=== PATIENT | male | born 1980 | race Caucasian/White ===

== ENCOUNTER → 2023-07-22 08:43 | Outpatient (REF) | payer OTHER, SELFPAY | LOC: DHCBC/DCA 08:43 | PROVIDERS: ATTENDING PHYSICIAN Family Medicine | DX: R07.89 Other chest pain (principal); E78.1 Pure hyperglyceridemia | CPT/HCPCS: 78452; 93017; A9500; J2785 ==

== ENCOUNTER 2023-11-09 02:10 | Inpatient (IN) | payer OTHER, SELFPAY ==
[2023-11-08 19:09] VITALS: BP 184/95
[2023-11-08 19:23] LABS: % Basophils 0.5 % (0-2); % Eosinophils 1.4 % (0-6); % Immature Granulocytes 0.4 % (0-0.5); % Lymphocytes 11.8 % (20.5-51.1); % Monocytes 7.7 % (1.7-9.3); % Neutrophils 78.2 % (42.2-75.2); Absolute Basophils 0.1 10^3/uL (0-0.2); Absolute Eosinophils 0.2 10^3/uL (0-0.7); Absolute Immature Granulocytes 0.1 10^3/uL (0-0.05); Absolute Lymphocytes 1.8 10^3/uL (1.2-3.4); Absolute Monocytes 1.2 10^3/uL (0.1-0.6); Absolute Neutrophils 11.9 10^3/uL (1.4-6.5); Hematocrit 35.5 % (39.0-52.0); Hemoglobin 12.6 g/dL (13.0-18.0); Mean Corp Hgb Conc. 35.5 g/dL (33.0-37.0); Mean Corpuscular Hgb 27.4 pg (27.0-31.0); Mean Corpuscular Volume 77.2 fL (80.0-94.0); Mean Platelet Volume 10.5 fL (7.4-10.4); Nucleated Red Blood Cells % 0 % (-); Platelet Count 240 10^3/uL (130-400); Red Cell Dist. Width 12.5 % (11.5-14.5); White Blood Cell Count 15.3 10^3/uL (4.8-10.8)
[2023-11-08 19:44] LABS: Blood Urea Nitrogen 21 mg/dl (9-20); Calcium 9.4 mg/dl (8.4-10.2); Carbon Dioxide 26 mmol/L (22-30); Chloride 100 mmol/L (98-107); Glucose 276 mg/dl (70-99); Potassium 4.2 mmol/L (3.5-5.1); Sodium 135 mmol/L (135-145); eGFR > 60.00
[2023-11-08 20:17] VITALS: BMI 44.7
[2023-11-08 20:20] VITALS: BP 131/66
[2023-11-08 21:57] LABS: Glucose - Point of Care 275 mg/dl (70-99)
[2023-11-08] MEDS: NSS 1000 IV (22:13)
[2023-11-08] MEDS: NOVOLIN R 10 UNITS SC (22:15)
[2023-11-08 22:24] VITALS: BP 138/75
[2023-11-08] MEDS: ANCEF 10 IV (22:30)
--- NOTE | 2023-11-08 23:29 | ED.GENMED ---
History of Present Illness
General
Chief Complaint: Musculo-Skeletal Complaint
Source: patient
Exam Limitations: none
Time Seen by Provider: 11/08/23 20:59
Nursing documentation reviewed up to this point in time: agreed with
History of Present Illness
History of Present Illness:
43-year-old male past medical history of diabetes substance abuse presenting to the emergency department today with concerns of initial swelling discomfort to the right great toe. This is moving proximally into his right hartmann also having some
discomfort rating to his right groin. Denies significant systemic symptoms. Denies vomiting chest pain shortness of breath
Past History
Past History
ED Past Medical History: Asthma, HTN, NIDDM and Other (Cellulitis right leg. Migraines, PNA)
ED Past Surgical History: Orthopedic (Right shoulder surgery, Right elbow surgery)
Social History
Tobacco: Former smoker
Alcohol: Other
Drug: Former user
Personal: Single
Living: with family
Employment: Employed
Family History
Family History: Other (Noncontributory)
Review of Systems
Review of Systems
Allergies reviewed?: Yes
All Other Systems: ROS reviewed and negative except as documented in HPI and ROS
Phy Exam
Physical Exam
Physical Exam:
GENERAL: Alert , in no apparent distress
EYE: pupils equal and reactive
NECK: Supple, no significant adenopathy.
ENT: o/p clr, mmm.
CARDIAC: Regular rate and rhythm .
LUNGS: Clear breath sounds bilaterally, no acute respiratory distress, no wheezes/rales/rhonchi
ABDOMEN: Soft, without focal tenderness, no r/g, no cvat
NEUROLOGICAL: Alert and oriented, no focal neuro deficits
SKIN: Breakdown of the skin of the right great toe with a roughly 1 cm shallow ulcer tenderness to the area. Redness and warmth moving proximally into the right hartmann to the proximal right hartmann. Does not cross the knee. Warm and dry, skin intact.
MUSCULOSKELETAL: edema right leg, well perfused.
PSYCH: Normal and appropriate interaction.
Course
Orders/Labs/Results
Orders:
Orders
11/08/23 19:14
Basic Metabolic Panel Urgent
11/08/23 19:16
Complete Blood Count/With Diff Urgent
11/08/23 21:54
0.9% Sodium Chloride 1000 ml [Nss] 1,000 ml IV BOLUS
11/08/23 22:01
Insulin Human Regular [Novolin R] 10 units SC NOW STA
11/08/23 22:06
Blood Culture Urgent
FREIDA Source: Blood/Venous
Specimen Description:
11/08/23 22:23
CeFAZolin 2 GRAM [Ancef] 2 grams in 10 ml IV NOW
CR Foot - Right Min 3 Views Urgent
Comment:
Reason For Exam: great toe ulcer infection
Abnormal Lab Results
11/08/23 11/08/23 11/08/23
19:14 19:16 21:55
WBC 15.3 H 10^3/uL
(4.8-10.8)
RBC 4.60 L 10^6/uL
(4.70-6.10)
Hgb 12.6 L g/dL
(13.0-18.0)
Hct 35.5 L %
(39.0-52.0)
MCV 77.2 L fL
(80.0-94.0)
MPV 10.5 H fL
(7.4-10.4)
Abs Immat Gran (auto) 0.1 H 10^3/uL
(0-0.05)
Absolute Neuts (auto) 11.9 H 10^3/uL
(1.4-6.5)
Absolute Monos (auto) 1.2 H 10^3/uL
(0.1-0.6)
Neutrophils % 78.2 H %
(42.2-75.2)
Lymphocytes % 11.8 L %
(20.5-51.1)
BUN 21 H mg/dl
(9-20)
Glucose 276 H mg/dl
(70-99)
POC Glucose 275 H mg/dl
(70-99)
11/08/23 19:16
11/08/23 19:14
Vital Signs
Initial and Last Documented VS:
Initial Vital Signs
Temp Pulse Resp BP Pulse Ox
99.9 F 104 16 184/95 97
11/08/23 19:09 11/08/23 19:09 11/08/23 19:09 11/08/23 19:09 11/08/23 19:09
Last Documented Vital Signs
Temp Pulse Resp BP Pulse Ox
99.2 F 88 20 138/75 97
11/08/23 22:19 11/08/23 22:24 11/08/23 22:24 11/08/23 22:24 11/08/23 22:24
MDM/Problems Addressed
MDM/Problems Addressed:
43-year-old male presenting to the emergency department with what appears to be worsening infection of the right lower extremity initially starting from a cut or potential injury to the right great toe. Swelling and discomfort moving to the
proximal right hartmann patient does have a white count and temperature of 99.9. Hedoes have a history of diabetes currently sugar level in the 200s. Concerning large area of cellulitis as well as comorbidities admit for IV antibiotics.
*Critical Care Note
Total Time (30-74mins, 75-104mins- exclusive of procedures): Not Applicable
ED Attending Note
-
Portions of this chart may have been created with voice recognition software.� Occasional wrong word or��sound alike� substitutions may have occurred due to the inherent limitations of voice recognition software.
Discharge Plan
Departure
Patient Disposition: Admit
Date of Disposition: 11/08/23
Time of Disposition: 23:32
Admit to: Med/Surg
Admit to doctor: Prabhu
Presentation/result/management discussed w/ accepting MD/DO: Hospitalist
Patient with high blood pressure during this ER visit?: No
Condition: Good
Covid-19: Not Applicable
Discharge Problem:
Cellulitis
Prescriptions:
No Action
lisinopril 5 MG tablet
10 mg PO HS
metformin 1,000 MG tablet
1,000 mg PO BID
atorvastatin 40 mg Tablet
40 mg PO HS
insulin glargine [Lantus U-100 Insulin] 100 unit/mL Solution
90 unit SC HS
insulin aspart U-100 [Novolog FlexPen U-100 Insulin] 100 unit/mL (3 mL) Insulin Pen
SC TID
Patient Comments:
SLIDING SCALE
Rx Instructions:
sliding scale
fenofibrate 150 mg Capsule
145 mg PO DAILY
Mounjaro 2.5 mg/0.5 mL Pen Injector
SC WEEKLY
Patient Comments:
takes once per week, unsure exact dose
ibuprofen 800 mg Tablet
800 mg PO Q8H PRN (Reason: pain)
albuterol 90 mcg/actuation Aerosol
90 mcg INHALATION Q4H PRN (Reason: shortness of breath/wheezing)
Referrals:
Miquel Perea MD [Family Provider] -
Interventions
Interventions:
*Risk Screen - Suicide Last Done: 11/08/23 19:09
*General Assessment Last Done: 11/08/23 19:09
*Neglect/Abuse Screening Last Done: 11/08/23 19:09
ED-Musculoskeletal Assessment Last Done: 11/08/23 20:22
Discharge Date and Time
Print Language: SOUTH AFR[place]
[2023-11-09 00:18] LABS: Glucose - Point of Care 229 mg/dl (70-99)
[2023-11-09 00:24] VITALS: BP 139/78
--- NOTE | 2023-11-09 01:43 | HPS.HSE ---
Family Physician
-
Family Physician: Miquel Perea
Chief Complaint
-
R Foot Swelling
History of Present Illness
Patient is a 43y M with PMH significant for morbid obesity and DM-II who presents to ED complaining of R foot swelling x several days. Patient states that he initially noted blood from somewhere on the foot on Saturday evening. He was unable
to identify any specific wound at that time. He has peripheral neuropathy and poor sensation in his feet and has not been aware of any injury or trauma. He has had swelling in the R foot that has been gradually progressive x several days. He
reports a sense of tightness in the RLE that extends from the foot all the way to the groin. He denies any systemic complaints including fevers / chills, N/V, etc.
Medical History
Past Medical History
Past Medical History: Reports Other
Additional Past Medical History:
DM-II
Morbid Obesity
Past Surgical History: Reports Other
Additional Past Surgical History:
Shoulder Surgery
Elbow Surgery
Social History
Tobacco: Former Smoker (Quit smoking 5 months ago. Approx 20 pack years total use.)
Alcohol: None
Drug: None
Family History
Family History: Diabetes
Allergies / Home Medications
Allergies reflects when Allergies were last updated in [facility].
Home Medications with original date entered in [facility]
Allergy/Medication List:
Allergies
Allergy/AdvReac Type Severity Reaction Status Date / Time
theophylline Allergy Unknown Hives Verified 11/08/23 20:17
Home Medications
lisinopril 5 mg tablet 10 mg PO HS 02/21/14
metformin 1,000 mg tablet 1,000 mg PO BID 12/25/16
albuterol 90 mcg/actuation aerosol inhaler 90 mcg inhalation Q4H PRN shortness of breath/wheezing 11/08/23
atorvastatin 40 mg tablet 40 mg PO HS 11/08/23
fenofibrate 150 mg capsule 145 mg PO DAILY 11/08/23
ibuprofen 800 mg tablet 800 mg PO Q8H PRN pain 11/08/23
insulin aspart U-100 100 unit/mL (3 mL) subcutaneous pen (Novolog FlexPen U-100 Insulin aspart) unit SC TID 11/08/23
insulin glargine 100 unit/mL subcutaneous solution (Lantus U-100 Insulin) 90 unit SC HS 11/08/23
tirzepatide 2.5 mg/0.5 mL subcutaneous pen injector (Mounjaro) mg SC WEEKLY 11/08/23
Review of Systems
-
History Source: Patient
A 12 point ROS was completed and negative except as noted: Yes
Constitutional: Denies Fever or Chills
Respiratory: Denies Cough or Trouble Breathing
Cardiac: Denies Chest Pain or Palpitations
Abdomen/GI: Denies Abdominal Pain, Nausea, Vomiting or Diarrhea
: Denies Dysuria or Frequency
Musculoskeletal: Reports Joint Swelling and Edema; Denies Joint Pain
Skin: Reports Other (Redness R foot.)
Neurological: Denies Dizzy or Headache
Psych: Denies Depression or Anxiety
Physical Exam
Vital Signs
Vital Signs
Temp Pulse Resp BP Pulse Ox
99.2 F 85 16 139/78 100
11/08/23 22:19 11/09/23 00:24 11/09/23 00:24 11/09/23 00:24 11/09/23 00:24
Physical Exam
General: Other (Morbidly obese 43y M in no acute distress.)
HEENT: Moist mucous membranes, PERRLA and Other (Thick neck.)
Respiratory: Clear; No Wheezes, Rales or Rhonchi
Cardiac: S1/S2 and Regular Rhythm; No Murmur
GI: Soft, Non Tender, Non Distended and Normal Bowel Sounds
Musculoskeletal: No Clubbing, No Cyanosis and Other (Edema RLE mostly below the ankle. )
Skin: Other (Erythema / increased warmth of the R foot. Laceration / wound base of the 1st toe with small amount oozing blood.)
Neuro: AO x 3
Laboratory Results
-
11/08/23 19:16
11/08/23 19:14
Impression/Plan
-
A/P: Patient is a 43y M with PMH significant for DM-II and obesity who presents to ED complaining of R foot swelling x several days.
RLE Cellulitis
R Great Toe Wound / Laceration
- Admit for further evaluation and treatment.
- Continue IV abx with Zosyn for now given DM-II
- Podiatry evaluation re: great toe wound.
- Tetanus booster updated in the ED.
- Follow for clinical improvement.
DM-II with Peripheral Neuropathy
- Stable. Continue basal insulin regimen.
- Follow glucose and cover with SSI as needed.
- Update A1C.
Morbid Obesity
- affects all aspects of care.
- Encourage healthy diet and increased exercise with goal of weight loss.
DVT Prophylaxis: High dose Lovenox
Code Status: Full
[2023-11-09] MEDS: ADACEL 0.5 ML IM (01:44)
[2023-11-09] MEDS: NSS 1000 IV ×3 (03:41→22:07)
[2023-11-09] MEDS: ZOSYN 50 IV ×4 (03:43→21:03)
[2023-11-09 03:45] VITALS: BP 141/75
[2023-11-09] MEDS: TYLENOL 650 MG PO ×3 (05:35→21:04)
[2023-11-09 05:56] LABS: Hematocrit 35.4 % (39.0-52.0); Hemoglobin 12.3 g/dL (13.0-18.0); Mean Corp Hgb Conc. 34.7 g/dL (33.0-37.0); Mean Corpuscular Hgb 27.6 pg (27.0-31.0); Mean Corpuscular Volume 79.6 fL (80.0-94.0); Mean Platelet Volume 10.7 fL (7.4-10.4); Platelet Count 227 10^3/uL (130-400); Red Blood Cell Count 4.45 10^6/uL (4.70-6.10); Red Cell Dist. Width 12.5 % (11.5-14.5); White Blood Cell Count 14.3 10^3/uL (4.8-10.8)
[2023-11-09 06:09] LABS: Blood Urea Nitrogen 16 mg/dl (9-20); Calcium 7.6 mg/dl (8.4-10.2); Carbon Dioxide 23 mmol/L (22-30); Chloride 108 mmol/L (98-107); Estimated Creatinine Clearance > 125 ml/min; Glucose 171 mg/dl (70-99); Potassium 3.5 mmol/L (3.5-5.1); Sodium 138 mmol/L (135-145); eGFR > 60.00
[2023-11-09 06:25] VITALS: BP 149/80
[2023-11-09 08:26] LABS: Erythrocyte Sed Rate 25 mm/hour (0-20)
[2023-11-09 09:18] VITALS: BMI 44.2
[2023-11-09 09:19] VITALS: BP 153/91
[2023-11-09 09:33] LABS: Glucose - Point of Care 255 mg/dl (70-99)
[2023-11-09] MEDS: LOVENOX 40 MG SC ×2 (09:34→21:03)
[2023-11-09] MEDS: NOVOLOG FLEXPEN-MODERATE RESISTANCE 5 UNITS SC ×2 (09:52→12:00)
[2023-11-09 11:39] LABS: Glucose - Point of Care 283 mg/dl (70-99)
--- NOTE | 2023-11-09 12:07 | W.CS.POD ---
Consult Summary - Podiatry
-
Patient is a 43y M with PMH significant for morbid obesity and DM-II with recent HbA1c at 12 admitted with Rt foot swelling and Rt big toe wound, he states that he did not feel any thing in the foot till he noticed swelling and redness and pain
going to his groin. HE had fever,chills 2days ago, He has peripheral neuropathy and poor sensation in his feet and has not been aware of any injury or trauma. His swelling progressively got worse so he presented to the hosp, He Is on IV abx
improving WBC count, denies any chest pain, no SOB complaints including fevers / chills, N/V, etc.
Reviewed PMH, meds and allergies.
Rt foot intact Pedal pulses
Loss of protective sensation to b/l feet
Rt L/E edematous, mild erythema to RT foot , RT hallux medial aspect with pustule noted. there is dry superficial ulcer plantar aspect of the hallux. no exposed bone, does not probe to deep tissues,.
Xrays negative for any bone pathology
No osteomyelitic changes noted .
WBC count 14
A/p; Rt foot cellultis
Rt hallux abscess
DM - type 2 with poorly controlled HB a1c
Diabetic neuropathy
Obesity.
Plan : Cont IV abx
At beside, drained Rt hallux pustule, obtained aerobic and anaerobic cultures, sent for micro
Dry gauze dressings with adaptic applied
elevate t lower leg when at rest
No surgical intervention by podiatry
--- NOTE | 2023-11-09 13:57 | W.PN.UPDATE ---
Update Note
Progress Note Update
Seen by Dr. Berrios this morning. Admitted for right lower extremity cellulitis. Seen by manufacturing helper -there input and recommendation noted. Continue with antibiotics and follow culture data.
[2023-11-09 15:20] VITALS: BP 135/84
[2023-11-09 16:49] LABS: Glucose - Point of Care 240 mg/dl (70-99)
[2023-11-09] MEDS: NOVOLOG FLEXPEN-MODERATE RESISTANCE 3 UNITS SC (17:15)
--- NOTE | 2023-11-09 18:08 | PTCARENOTE ---
Received patient from ED AAOx3. Pt oriented to room. IVF infusing without difficulty. Pt tolerated diet well. Complained of pain in right foot. Medicated with Tylenol with moderated relief. Made patient comfortable. Cont to assess patient status.
[2023-11-09] MEDS: LIPITOR 40 MG PO (21:02)
[2023-11-09] MEDS: LANTUS 0.9 UNITS SC (21:03)
[2023-11-09] MEDS: ZESTRIL 10 MG PO (21:03)
[2023-11-09 21:06] LABS: Glucose - Point of Care 279 mg/dl (70-99)
[2023-11-09] MEDS: MOTRIN 800 MG PO (22:07)
[2023-11-09 23:46] VITALS: BP 138/79
[2023-11-10] MEDS: ZOSYN 50 IV ×4 (03:17→22:44)
[2023-11-10 07:15] LABS: Glucose - Point of Care 282 mg/dl (70-99)
[2023-11-10 07:25] VITALS: BP 140/86
[2023-11-10] MEDS: LOVENOX 40 MG SC ×2 (08:31→21:09)
[2023-11-10 08:32] VITALS: BP 140/86
[2023-11-10] MEDS: NOVOLOG FLEXPEN-HIGH RESISTANCE 7 UNITS SC ×2 (08:32→12:44)
[2023-11-10 11:41] LABS: Glucose - Point of Care 297 mg/dl (70-99)
[2023-11-10] MEDS: NSS IV (11:43)
[2023-11-10] MEDS: MOTRIN 400 MG PO ×2 (11:49→21:08)
[2023-11-10 12:21] LABS: Glycohemoglobin (HgbA1c) 9.3 % (4.0-5.6)
--- NOTE | 2023-11-10 14:03 | W.PN.HOSP.TC ---
Today's Communication/Plan
-
cw Zosyn
Follow CX from I*D
Add nutritional insulin
Assessment / Plan
Assessment / Plan
A/P: Patient is a 43y M with PMH significant for DM-II and obesity who presents to ED complaining of R foot swelling x several days.
RLE Cellulitis
R Great Toe Wound / Laceration
- s/p local I*D of right big toe 11/08.Wound cx sent , pending.
- Continue IV abx with Zosyn for now given DM-II
- Podiatry following
- Tetanus booster updated in the ED.
- Follow for clinical improvement.
DM-II with Peripheral Neuropathy
- Stable. Continue basal insulin regimen.
- Follow glucose and cover with SSI as needed.
- Update A1C pending
- Patient was using Lantus and that sliding scale insulin with her meals but no nutritional insulin. Will start on nutritional insulin and increase the sliding scale to high-dose.
Morbid Obesity
- affects all aspects of care.
- Encourage healthy diet and increased exercise with goal of weight loss.
DVT Prophylaxis: High dose Lovenox
Code Status: Full
Anticipated Discharge: 24 - 48 hours
Subjective/Interval History
-
Date of Service: November 10, 2023
Right leg feels improved-less swelling, less redness. No fever or chills.
Objective Data
-
Vital Signs:
Vital Signs
Temp Pulse Resp BP Pulse Ox
97.6 F 73 18 140/86 98
11/10/23 07:25 11/10/23 07:25 11/10/23 07:25 11/10/23 07:25 11/10/23 08:30
I&O
11/09/23 11/10/23 11/11/23
06:59 06:59 06:59
Intake Total 580 / 580
Balance 580 / 580
Review of Systems
-
Respiratory: Denies Trouble Breathing
Cardiac: Denies Chest Pain
Abdomen/GI: Denies Nausea, Vomiting or Diarrhea
Neuro: Denies Dizzy
Physical Exam
-
General: No Apparent Distress
Respiratory: Non Labored Respirations; Negative Accessory Resp Muscle Use
Cardiac: Regular Rhythm and S1/S2
GI: Soft
Skin: Other (rt big toe in dressing ; edema of foot and lower leg noted. black oxide coating equipment tender to touch on palpation of whole foot and medial leg ( where the redness is better) ; tender inguinal LN on rt.)
Neuro: AO x 3
Psych: Calm
Data Reviewed
-
Labs: Labs Reviewed by me
[2023-11-10 15:20] VITALS: BP 140/81
[2023-11-10 16:31] LABS: Glucose - Point of Care 215 mg/dl (70-99)
[2023-11-10] MEDS: NOVOLOG FLEXPEN 5 UNITS SC (16:46)
[2023-11-10] MEDS: NOVOLOG FLEXPEN-HIGH RESISTANCE 4 UNITS SC (16:47)
[2023-11-10] MEDS: LIPITOR 40 MG PO (21:10)
[2023-11-10 21:12] LABS: Glucose - Point of Care 258 mg/dl (70-99)
[2023-11-10] MEDS: LANTUS 0.9 UNITS SC (22:45)
[2023-11-10] MEDS: ZESTRIL 10 MG PO (22:46)
[2023-11-10 23:30] VITALS: BP 150/85
[2023-11-11 01:30] VITALS: PULSE 2; PULSE 76
[2023-11-11] MEDS: ZOSYN 50 IV ×2 (04:45→09:59)
[2023-11-11 04:49] LABS: Hematocrit 33.2 % (39.0-52.0); Hemoglobin 11.7 g/dL (13.0-18.0); Mean Corp Hgb Conc. 35.2 g/dL (33.0-37.0); Mean Corpuscular Hgb 27.9 pg (27.0-31.0); Mean Platelet Volume 10.6 fL (7.4-10.4); Platelet Count 208 10^3/uL (130-400); Red Cell Dist. Width 12.2 % (11.5-14.5); White Blood Cell Count 7.4 10^3/uL (4.8-10.8)
[2023-11-11 07:19] VITALS: BP 148/92
[2023-11-11 08:01] LABS: Glucose - Point of Care 226 mg/dl (70-99)
[2023-11-11] MEDS: LOVENOX 40 MG SC (08:13)
[2023-11-11] MEDS: NOVOLOG FLEXPEN 5 UNITS SC ×2 (08:15→12:35)
[2023-11-11] MEDS: NOVOLOG FLEXPEN-HIGH RESISTANCE 4 UNITS SC (08:16)
[2023-11-11] MEDS: MOTRIN 400 MG PO (08:18)
--- NOTE | 2023-11-11 09:06 | W.PN.HOSP.TC ---
Addendum entered and electronically signed by Jarred Bustillos MD 11/12/23 09:01:
Localized Infection Only, Without Systemic Illness
- R foot cellulitis
Original Note:
Today's Communication/Plan
-
Discharge today
Assessment / Plan
Assessment / Plan
A/P: Patient is a 43y M with PMH significant for DM-II and obesity who presents to ED complaining of R foot swelling x several days.
RLE Cellulitis
R Great Toe Wound / Laceration
- s/p local I*D of right big toe 11/08.wound cultures growing MSSA, sensitive to Augmentin
- Tetanus booster updated in the ED.
- Currently on IV Zosyn, medically stable and cleared by podiatry for discharge on Augmentin for 7 more days
- Continue topical mupirocin, daily feet checks
- Needs to wear her right surgical shoe, follow-up with podiatry in the office, and his PCP in 1 week
DM-II with Peripheral Neuropathy
- A1C 9.3
- Continue home Lantus 90 units at bedtime, Mounjaro. Add NovoLog 10 units AC 3 times daily
Morbid Obesity
- affects all aspects of care.
- Encourage healthy diet and increased exercise with goal of weight loss.
DVT Prophylaxis: High dose Lovenox
Code Status: Full
Physical Exam
General: Morbidly obese, no acute distress
HEENT: Normocephalic, Atraumatic, EOMI, MMM
Respiratory: Clear to Auscultation bilaterally
Cardiac: Normal S1/S2, Regular Rate and Rhythm
GI: Soft, Nontender, Nondistended, Normal Bowel Sounds
Extremities: No Clubbing, Cyanosis, or Edema
Right great toe ulcer dressed
Neuro: Nonfocal/Grossly Intact
Psych: Calm, Cooperative
Anticipated Discharge: Today
Subjective/Interval History
-
Date of Service: November 11, 2023
Patient reports feeling well. He does have right toe pain, 6 out of 10 in intensity. No fever, no vomiting.
Objective Data
-
Labs:
Laboratory Results
11/11/23
04:27
WBC 7.4
Hgb 11.7 L
Hct 33.2 L
Plt Count 208
Vital Signs:
Vital Signs
Temp Pulse Resp BP Pulse Ox
97.6 F 75 20 148/92 97
11/11/23 07:19 11/11/23 07:19 11/11/23 07:19 11/11/23 07:19 11/11/23 07:19
I&O
11/10/23 11/11/23 11/12/23
06:59 06:59 06:59
Intake Total 580 / 580 1080 / 1080
Balance 580 / 580 1080 / 1080
[2023-11-11] MEDS: BACTROBAN 2% OINTMENT 1 APPLIC TOPICAL (09:45)
--- NOTE | 2023-11-11 09:54 | WOUNDNOTE ---
R GREAT TOE PLANTAR
--- NOTE | 2023-11-11 09:55 | WOUNDNOTE ---
R MEDIAL GREAT TOE
--- NOTE | 2023-11-11 09:55 | WOUNDNOTE ---
R GREAT TOE PLANTAR
--- NOTE | 2023-11-11 09:56 | WOUNDNOTE ---
WON RN note: Patient admitted with cellulitis of R foot/great toe.
See H&P for complete history. Lives with , works time lock expert.
PMH: Obesity, sleep apnea, DM, pneumonia, substance abuse-in recovery, ex smoker and cellulitis.
Wound Location and type/assessment: Patient admitted with: R foot cellulitis and swelling, R great toe plantar diabetic wound. Has dry ulcer on plantar surface of toe, does not probe to bone. Surrounding ulcer and medially is a flat white blister.
Great toe also has a few nicks/slits that are dry. Patient states he didn't feel that he cut his toe but when he touched his to nail he had a sharp pain, noticed redness and swelling. Foot with resolving cellulitis/edema, skin warm and heel intact,
+ palpable pedal pulses. L foot and heel also intact. Reviewed Dr. Kline's note and made her aware that wound culture + for staph, received new order for mupirocin.
Appetite: Good, hgbA1c 9.3, down from 13 patient reports.
Pressure redistribution devices in place: On [employer] bed, patient is ad mima, has plastic open toe slip on sandals at bedside. R leg elevated on several pillows.
Plan: R plantar great toe and blister applied mupirocin, adaptic and dry dressing. Teaching done with patient regarding wound care and elevation of leg. Patient confirmed he understands wound care and can do himself or can help him at home.
Dressings at bedside, can take upon discharge. Confirmed wound care with Fashion Director.
Updated care plan and will follow as needed.
Note to case management of equipment requested for discharge: None.
Recommend follow up with party planner upon discharge.
[2023-11-11 11:46] LABS: Glucose - Point of Care 276 mg/dl (70-99)
[2023-11-11] MEDS: NOVOLOG FLEXPEN-HIGH RESISTANCE 7 UNITS SC (12:35)
--- NOTE | 2023-11-11 12:57 | W.PN.POD ---
Today's Communication
Today's Communication
PAtient stable per podiatry to D/C home
Assessment / Plan
-
Rt Lower extremity cellultis - resolved
Rt hallux stable ulcer
DM - type 2 with poorly controlled HB a1c
Diabetic neuropathy
Obesity.
Resolved leukocytosis
Plan : Can transition to oral abx
wound cultures showing MSSA
Applied topical mupirocin, adaptic and dry gauze dressings to Rt big toe, patient to cont the same at home
Asked him to keep the Rt leg elevated when at rest.
Discussed in length about maintaining his Blood sugars in good control
Daily feet check for any sores/blisters/protective shoe gear at all times discussed
Open toe shoe or surgical shoe to rt foot
HE will need Po Augmentin for another 1 wk
D/W hosp service
Subjective
Chief Complaint
Rt Lower leg cellultis
Subjective
Patient seen at bedside, doing well, he states that the LT lower leg pain has resolved very well, Improved redness as well. No fever, chills.
Objective
Temp Pulse Resp BP Pulse Ox
97.6 F 75 20 148/92 95
11/11/23 07:19 11/11/23 07:19 11/11/23 07:19 11/11/23 07:19 11/11/23 08:00
11/11/23 04:27
11/09/23 05:30
Vital Signs and Lab results were reviewed.
Intact pedal pulses B/l feet
Rt lower leg resolved edema and resolved erythema, no tenderness,
RT foot with resolving erythema, mild edema noted, RT hallux lateral aspect there is dry superficial ulcer plantar aspect of the hallux. no exposed bone, does not probe to deep tissues,.
--- NOTE | 2023-11-11 14:26 | W.DCSUMMARY ---
Discharge Summary
Discharge Data
Date of Admission: 11/09/23
Date of Discharge: 11/11/23
-
Pending Results: No
Hospital Course
Discharge diagnosis:
Right foot cellulitis
Right hallux toe ulcer
Uncontrolled type 2 diabetes with peripheral neuropathy
Morbid obesity due to excess calories
Consults: Podiatry
Procedures:
11/09/2023 bedside I&D of right hallux ulcer by podiatry
Hospital course:
43-year-old male with a past medical history of type 2 diabetes, peripheral neuropathy, and morbid obesity presented with right foot pain and swelling. He was found to have right foot cellulitis secondary to an infected right hallux ulcer. He was
treated with IV Zosyn. He was seen in conjunction with podiatry, and underwent bedside I&D of his right hallux ulcer. Wound cultures grew out MSSA, sensitive to Augmentin.
Patient was found to have uncontrolled type 2 diabetes, hemoglobin A1c is 9.3. He is continued on his home Lantus 90 units at bedtime, and Mounjaro. He was also started on NovoLog 10 units AC 3 times daily.
Patient is medically stable and cleared by podiatry for discharge. He will be discharged on Augmentin to complete a 7-day course. He is to continue topical mupirocin, daily feet checks. He needs to wear a right surgical shoe, and follow-up with
podiatry in the office.
Disposition: Home self-care
Discharge planning: Required 37 minutes
Discharge Plan
-
Patient Disposition: Home (Routine Discharge)
Discharge Diagnosis/Procedures: Right lower extremity cellulitis, right hallux ulcer, uncontrolled type 2 diabetes, diabetic neuropathy, obesity
Condition: Good
Diet: Diabetic, Carb Controlled
Activity: As tolerated
Driving Restrictions: As prior to admission
Activity Restrictions/Additional Instructions:
Follow up with Podiatry, and your primary care doctor in 1 week. Call for appointments.
Continue topical mupirocin, adaptic and dry gauze dressings to Rt big toe.
Keep the Rt leg elevated when at rest.
Daily feet check for any sores/blisters/protective shoe gear at all times discussed.
Open toe shoe or surgical shoe to rt foot.
Wound Care Instructions
R foot: clean with soap and water, mupirocin, adaptic and dry dressing daily.
open toe sandals or surgical shoe to R foot when ambulating
R leg elevation
control blood sugars.
Referrals:
Miquel Perea MD [Family Provider] - in one week
Ward Kline DPM [Specified Professional Personl] - in two to three weeks
Prescriptions:
New
mupirocin 2 % Ointment
1 applic topical DAILY 7 Days Qty: 1 0RF
insulin aspart U-100 100 unit/mL (3 mL) Insulin Pen
10 unit SC AC Qty: 15 0RF
amoxicillin-pot clavulanate 875-125 mg tablet
1 tab PO BID 7 Days Qty: 14 0RF
Continued
lisinopril 5 MG tablet
10 mg PO HS
metformin 1,000 MG tablet
1,000 mg PO BID
atorvastatin 40 mg Tablet
40 mg PO HS
insulin glargine [Lantus U-100 Insulin] 100 unit/mL Solution
90 unit SC HS
insulin aspart U-100 [Novolog FlexPen U-100 Insulin] 100 unit/mL (3 mL) Insulin Pen
SC TID
Patient Comments:
SLIDING SCALE
Rx Instructions:
sliding scale
fenofibrate 150 mg Capsule
145 mg PO DAILY
Mounjaro 2.5 mg/0.5 mL Pen Injector
SC WEEKLY
Patient Comments:
takes once per week, unsure exact dose
ibuprofen 800 mg Tablet
800 mg PO Q8H PRN (Reason: pain)
albuterol 90 mcg/actuation Aerosol
90 mcg INHALATION Q4H PRN (Reason: shortness of breath/wheezing)
Discharge Orders:
Discharge Patient (As Directed); Ordered 11/11/23
Ordered By: Jarred Bustillos
Discharge Date and Time
Discharge Date/Time: 11/11/23 16:35
Print Language: ALBANIAN
[2023-11-11 15:35] VITALS: BP 147/91
--- NOTE | 2023-11-11 17:13 | CM ---
CM met with Surya at bedside prior to discharge today.
Surya lives in a 2nd floor apartment with 12 entry steps. He has been (I) amb and adls, no DME.
Plan: Discharge to home with no needs.
PCP: Miquel Metcalf
Pharmacy: [facility]
--- NOTE | 2023-11-12 08:19 | PN.CDI ---
CDI
- -
CDI:
Physician Documentation Request
Admit Date: 11/09/23 02:10
Dear Doctor Do,
Patient admitted with RLE cellulitis and R great toe wound/ laceration.
11/10 PN, 'Currently on IV Zosyn, medically stable and cleared by podiatry for discharge on Augmentin for 7 more days.'
On admission, WBC 15.3 and HR> 90.
Please clarify which of the following most accurately describes the status of the patient's infection:
Sepsis, POA
RLE Cellulitis/ R great toe wound only
Other
Sepsis
- Systemic manifestations of infection, with 2 or more SIRS criteria which include:
- Fever >100.4 degrees F or hypothermia < 96.8 degrees F
- Leukocytosis - WBC > 12,000 or leukopenia - WBC < 4,000 or > 10% bands
- Tachycardia > 90 beats per minute
- Tachypnea - RR > 20 breaths per minute or PaCO2 , 32mmHg
Source: Merck Manual 2013
- Indicate the known or suspected organism
- Indicate the known or suspected underlying infection, such as cellulitis
Localized Infection Only, Without Systemic Illness
- indicate the site/source, such as cellulitis
Other
Unable to Determine
Use of terms such as suspected, likely, concern for, or probable (associated with a specific diagnosis that is being evaluated, monitored, or treated as if it exists) are acceptable and can be coded in the inpatient setting, when documented at the
time of discharge.
Thank you,
Shweta TINSLEY,RN,CCDS
CDI Specialist
Available via tiger text
Please use your independent medical judgment in providing your response.
== END 2023-11-11 16:35 | disposition home or self-care (01) | DRG 638 ==
LOC: 4 EAST ACU 02:10
PROVIDERS: Emergency Medicine; Internal Medicine; ADMITTING PHYSICIAN Hospitalist; ATTENDING PHYSICIAN Family Medicine; EMERGENCY PHYSICIAN Emergency Medicine; FAMILY PHYSICIAN Family Medicine; OTHER PHYSICIAN Podiatrist Foot & Ankle Surgery
DX: E11.621 Type 2 diabetes mellitus with foot ulcer (principal); L03.115 Cellulitis of right lower limb; Z68.41 Body mass index [BMI] 40.0-44.9, adult; Z87.891 Personal history of nicotine dependence; E11.40 Type 2 diabetes mellitus with diabetic neuropathy, unspecified; E66.01 Morbid (severe) obesity due to excess calories; L97.519 Non-pressure chronic ulcer of other part of right foot with unspecified severity
CPT/HCPCS: 73630; 80048; 82962; 83036; 85025; 85027; 85652; 87040; 87070; 87147; 87186; 87205; 90715; 94660; 96361; 96365; 96372; 96375; 97161; 99284; 99406

== ENCOUNTER 2025-01-15 12:05 | Emergency (ER) | payer OTHER, SELFPAY ==
[2025-01-15 12:06] VITALS: BP 181/97
[2025-01-15 12:37] VITALS: BP 118/88
[2025-01-15 12:38] LABS: Glucose - Point of Care 297 mg/dl (70-99)
[2025-01-15 12:43] LABS: Hematocrit 36.9 % (39.0-52.0); Hemoglobin 12.7 g/dL (13.0-18.0); Mean Corp Hgb Conc. 34.4 g/dL (33.0-37.0); Mean Corpuscular Volume 76.9 fL (80.0-94.0); Nucleated Red Blood Cells % 0 % (-); Platelet Count 234 10^3/uL (130-400); Red Cell Dist. Width 12.7 % (11.5-14.5)
--- NOTE | 2025-01-15 12:47 | ED.GENMED ---
History of Present Illness
General
Chief Complaint: Rectal Bleeding
Time Seen by Provider: 01/15/25 12:26
Nursing documentation reviewed up to this point in time: agreed with
History of Present Illness
History of Present Illness:
44-year-old male presents to the ER for evaluation of rectal bleeding and abdominal discomfort beginning approximately 2 weeks ago. Patient denies any fever or chills. He has been eating but has had decreasing appetite. He reports his blood
sugars have been elevated recently, up to 300. He had been using a [facility] but ran out of materials. He has been trying to follow a low-carb diet. He has been taking all of his medications as prescribed. No recent antibiotics. No recent
travel. He states that he had rectal bleeding 2 years ago which was evaluated with a colonoscopy, determined to be related to hemorrhoids. He states that the rectal bleeding started during a period when he felt constipated. He first noted bright
red blood on the toilet paper but then was having frequent bloody bowel movements. He states that now his stools are more loose and poorly formed, black in color. Of note he has been taking Pepto-Bismol for his symptoms. He denies any syncope or
trauma. No prior history of abdominal surgery. No urinary discomforts.
Patient does have a significant prior medical history including diabetes, hyperlipidemia, sleep apnea, neuropathy, migraine headaches and is in recovery from opiate use disorder
Past History
Past History
ED Past Medical History: Asthma, HTN, NIDDM and Other (Cellulitis right leg. Migraines, PNA)
ED Past Surgical History: Orthopedic (Right shoulder surgery, Right elbow surgery)
Social History
Tobacco: Former smoker
Alcohol: Other
Drug: Former user
Personal: Single
Living: with family
Employment: Employed
Family History
Family History: Other (Noncontributory)
Review of Systems
Review of Systems
Allergies reviewed?: Yes
Phy Exam
Physical Exam
Physical Exam:
Patient is awake, alert, obese, appears in no acute distress, head is NCAT, PERRL, EOMI mucous membranes moist, conjunctiva pink, heart regular rate and rhythm without murmurs or ectopy, lungs are clear to auscultation without wheezes rales or
rhonchi, no JVD, abdomen is soft and nontender on palpation, no guarding or rebound, rectal exam with external and internal hemorrhoids, no blood, hemoccult negative, control positive, extremities without edema, GCS is 15
Course
Orders/Labs/Results
Orders:
Orders
01/15/25 12:22
Cardiac Monitoring- Treatment ONCE
O2 Therapy [RESP] Urgent
Titrate/Wean O2 to maintain O2 sat greater than (%): 93
Special Instructions: MAINTAIN CONTINOUS O2 SATS > OR = 93%
Pulse Ox/spot Check [RESP] Urgent
Quantity: 1
Special Instructions: ON ROOM AIR
01/15/25 12:36
Type+Screen Urgent
Complete Blood Count/With Diff Urgent
Comprehensive Metabolic Panel Urgent
PTT Urgent
Prothrombin Time Urgent
01/15/25 12:40
CT Abd/pel W Iv And Oral Contr Urgent
Comment:
Reason For Exam: change in bowel habits/diarrhea and pain
0.9% Sodium Chloride 1000 ml [Nss] 1,000 ml IV BOLUS
Dicyclomine [Bentyl] 20 mg PO NOW STA
Iohexol [Omnipaque] See Protocol PO NOW STA
Abnormal Lab Results
01/15/25
12:36
Hgb 12.7 L g/dL
(13.0-18.0)
Hct 36.9 L %
(39.0-52.0)
MCV 76.9 L fL
(80.0-94.0)
MCH 26.5 L pg
(27.0-31.0)
Abs Immat Gran (auto) 0.1 H 10^3/uL
(0-0.05)
Absolute Monos (auto) 1.2 H 10^3/uL
(0.1-0.6)
Immature Gran % 1.2 H %
(0-0.5)
Monocytes % 15.7 H %
(1.7-9.3)
Creatinine 0.6 L mg/dL
(0.7-1.3)
Glucose 283 H mg/dl
(70-99)
ALT 59 H U/L
(0-50)
POC Glucose 297 H mg/dl
(70-99)
01/15/25 12:36
01/15/25 12:36
Hgb reassuring, no indication for transfusion
Vital Signs
Initial and Last Documented VS:
Initial Vital Signs
Temp Pulse Resp BP Pulse Ox
97.7 F 100 20 181/97 97
01/15/25 12:06 01/15/25 12:06 01/15/25 12:06 01/15/25 12:06 01/15/25 12:06
Last Documented Vital Signs
Temp Pulse Resp BP Pulse Ox
98.3 F 82 21 135/81 97
01/15/25 15:59 01/15/25 15:59 01/15/25 12:33 01/15/25 15:59 01/15/25 15:59
MDM/Problems Addressed
Differential Diagnosis Includes:
Differential diagnosis to consider but not limited to colitis, diverticulitis, gastroenteritis along with other etiologies considered
Chronic conditions affecting care:
Diabetes, obesity, high cholesterol
*Radiology
Radiology exam reviewed: radiology read reviewed
*Pulse Oximetry
SaO2: 96
Oxygen Mode of Delivery: Room air
Patient hypoxic: no
*Critical Care Note
Total Time (30-74mins, 75-104mins- exclusive of procedures): Not Applicable
Update Note
Update Note:
Patient reported symptomatic improvement after given Bentyl. He was also given IV fluids. I reviewed all test results with the patient. Very reassuring CBC. Electrolytes within normal limits. CT scan without any specific findings, although we
did discuss nonspecific lymphadenopathy in the perirectal area. I discussed with patient possible constipation seen on the CT scan. I discussed with him with change in bowel habits he would benefit from seeing his colorectal specialist for further
evaluation. We discussed use of MiraLAX to help regulate his bowel movements. We discussed continued use of Bentyl as needed for cramping discomfort. Patient expressed understanding of need to follow-up with Dr. Khan, and had already called the
office to schedule appointment. He expressed understanding of strict return precautions and had no questions prior to the department.
ED Attending Note
-
Portions of this chart may have been created with voice recognition software.� Occasional wrong word or��sound alike� substitutions may have occurred due to the inherent limitations of voice recognition software.
Discharge Plan
Departure
Patient Disposition: Home (Routine Discharge)
Date of Disposition: 01/15/25
Time of Disposition: 16:10
Patient with high blood pressure during this ER visit?: Yes
Discharge Problem:
Altered bowel function, Abdominal pain
Instructions: Abdominal Pain
Prescriptions:
New
dicyclomine 20 mg tablet
20 mg PO QID Qty: 20 0RF
No Action
metformin 1,000 MG tablet
1,000 mg PO BID
atorvastatin 40 mg Tablet
40 mg PO HS
insulin glargine [Lantus U-100 Insulin] 100 unit/mL Solution
80 unit SC HS
insulin aspart U-100 [Novolog FlexPen U-100 Insulin] 100 unit/mL (3 mL) Insulin Pen
20 sliding scale dose SC AC
ibuprofen 800 mg Tablet
800 mg PO DAILY
Theragen Tablet
1 tab PO DAILY
bismuth subsalicylate [Pepto-Bismol] 262 mg/15 mL Suspension
262 mg PO DAILYPRN PRN (Reason: gerd)
lisinopril 10 mg Tablet
10 mg PO DAILY
fenofibrate nanocrystallized 145 mg Tablet
145 mg PO DAILY
Mounjaro 7.5 mg/0.5 mL Pen Injector
7.5 mg SC HAWKINS
Referrals:
Miquel Perea MD [Family Provider, Family Practice]
Alok Khan MD [Active, [facility]] - Next open appointment
Activity Restrictions/Additional Instructions:
Start using MiraLAX daily to help make your stools bulkier and easier to pass. Use Bentyl as prescribed to help with intestinal discomforts. Please follow-up with Dr. Khan as discussed for further evaluation of your symptoms and CAT scan results.
Return to the ER for any concern
Interventions
Interventions:
*Risk Screen - Suicide Last Done: 01/15/25 12:06
*General Assessment Last Done: 01/15/25 12:06
*Neglect/Abuse Screening Last Done: 01/15/25 12:06
*ED- Fall Risk Assessment Last Done: 01/15/25 13:49
*ED COVID-19 Vaccine History Last Done: 01/15/25 16:37
*Nursing Disposition Last Done: 01/15/25 16:37
AP-Zuteyi-Piclarrtow Assessment Last Done: 01/15/25 13:00
Discharge Date and Time
Discharge Date/Time: 01/15/25 16:37
Print Language: [email or web address]
[2025-01-15] MEDS: OMNIPAQUE 50 ML PO (12:52)
[2025-01-15] MEDS: NSS 1000 IV (12:52)
[2025-01-15] MEDS: BENTYL 20 MG PO (12:53)
[2025-01-15 12:56] LABS: INR 0.92; PT 12.7 Sec (11.4-14.6)
[2025-01-15 12:57] LABS: APTT 26.2 Sec (23.4-35.0)
[2025-01-15 13:06] LABS: ALT (SGPT) 59 U/L (0-50); AST (SGOT) 38 U/L (17-59); Albumin 4.1 g/dl (3.5-5.0); Alkaline Phosphatase 58 U/L (38-126); Blood Urea Nitrogen 18 mg/dl (9-20); Calcium 9.5 mg/dl (8.4-10.2); Carbon Dioxide 26 mmol/L (22-30); Chloride 103 mmol/L (98-107); Glucose 283 mg/dl (70-99); Potassium 4.3 mmol/L (3.5-5.1); Sodium 136 mmol/L (135-145); Total Protein 7.2 g/dl (6.3-8.2); eGFR > 60.00
[2025-01-15 14:18] VITALS: BP 127/77
[2025-01-15 15:59] VITALS: BP 135/81
== END 2025-01-15 16:37 | disposition home or self-care (01) ==
LOC: EMR 12:05
PROVIDERS: Emergency Medicine; EMERGENCY PHYSICIAN Emergency Medicine; FAMILY PHYSICIAN Family Medicine
DX: R10.9 Unspecified abdominal pain (principal); E11.40 Type 2 diabetes mellitus with diabetic neuropathy, unspecified; E78.00 Pure hypercholesterolemia, unspecified; G47.30 Sleep apnea, unspecified; I10 Essential (primary) hypertension; J45.909 Unspecified asthma, uncomplicated; K59.00 Constipation, unspecified; Z87.01 Personal history of pneumonia (recurrent); Z87.19 Personal history of other diseases of the digestive system; Z87.891 Personal history of nicotine dependence
CPT/HCPCS: 99284; 96360; 74177; 80053; 82962; 85025; 85610; 85730; 86850; 86900; 86901; Q9967